=== PATIENT | female | born 1995 | race American Indian/Alaskan Native ===

== ENCOUNTER 2018-07-30 17:19 | Outpatient (CLI) | payer MEDICAID ==
[2018-07-30] MEDS ORDERED: LACTATED RINGERS 1,000 ML IV SCH (19:00)
[2018-07-30] MEDS ORDERED: LACTATED RINGERS 500 ML IV ONE (19:00)
[2018-07-30 19:13] LABS: Basophils % (Auto) 0.4 % (0.0-1.8); Eosinophils % (Auto) 0.4 % (0.0-4.3); Hematocrit 33.3 % (30.3-42.9); Hemoglobin 11.5 gm/dl (10.1-14.3); Lymphocytes % (Auto) 18.2 % (13.4-35.0); Mean Corpuscular HGB Conc 35 % (30-34); Mean Corpuscular Volume 89 fl (79-97); Monocytes # (Auto) 1.4 K/mm3 (0.0-0.8); Monocytes % (Auto) 12.7 % (0.0-7.3); Platelet Count 326 K/mm3 (140-440); Red Blood Count 3.74 M/mm3 (3.65-5.03); Red Cell Distribution Width 13.1 % (13.2-15.2)
[2018-07-30 19:17] LABS: Bacteria,Urine 2+ /HPF (Negative); Bilirubin,Urine NEG (Negative); Blood,Urine NEG (Negative); Color,Urine Yellow (Yellow); Mucus,Urine FEW /HPF; Protein,Urine <15 mg/dL mg/dL (Negative)
--- NOTE | 2018-07-31 04:18 | Ultrasound Report ---
PROCEDURE: US OB BPP WO NON-STRESS TECHNIQUE: A biophysical profile was performed. HISTORY: labor COMPARISONS: None FINDINGS: For breathing movements, a score of 2 out of 2 was obtained. For movements, a score of 2 out of 2 was obtained. For posture and tone, a score of 2 out of 2 was obtained. Qualitative amniotic fluid volume, a score of 2 out of 2 was obtained. The heart rate is 157 BPM. IMPRESSION: Biophysical profile score of 8 out of 8.. This document is electronically signed by Erik Saxena MD., July 31 2018 04:16:11 AM ET
--- NOTE | 2018-07-31 04:19 | Ultrasound Report ---
PROCEDURE: US OB LIMITED TECHNIQUE: A limited OB sonogram was obtained for evaluation of the JAGDEEP. HISTORY: labor JAGDEEP COMPARISONS: None FINDINGS: The JAGDEEP is 15.7 cm which is normal. The heart rate is 157 BPM. The fetus is in cephalic present ation. IMPRESSION: Normal JAGDEEP of 15.7 cm.. This document is electronically signed by Erik Saxena MD., July 31 2018 04:17:07 AM ET
[2018-07-31 19:27] VITALS: BP 127/62
== END 2018-07-30 19:43 | disposition home or self-care (01) ==
LOC: TRG 17:19
PROVIDERS: ATTEND Obstetrics & Gynecology
DX: O76 Abnormality in fetal heart rate and rhythm complicating labor and delivery (principal); Z3A.32 32 weeks gestation of pregnancy
CPT/HCPCS: 36415; 59025; 76815; 76819; 81001; 85025; 96360

== ENCOUNTER 2018-08-17 15:16 | Outpatient (CLI) | payer MEDICAID ==
[2018-08-17] MEDS ORDERED: LACTATED RINGERS 500 ML IV ONE (15:46)
[2018-08-17 16:32] VITALS: BP 120/58
--- NOTE | 2018-08-17 16:40 | Ultrasound Report ---
EXAM: US OB BPP WO NON-STRESS HISTORY: movement TECHNIQUE: June scale imaging, duplex Doppler and color flow Doppler imaging are performed with a cur vilinear transducer. COMPARISON: None available. FINDINGS: breathing movements, 2. body movements, 2. tone, 2. Qualitative amniotic fluid volume, 2. There is a single IUP in cephalic presentation. The estimated heart rate is 178 beats per minut e. No gross anomaly is seen at this time (very Limited views of the anatomy). There is no evidence for cervical incompetence. The amniotic fluid index measures 13.6 cm, (left uppe r quadrant 2.8 cm; right upper quadrant 4.1 cm; right lower quadrant 2 cm; left lower quadrant 4.7 cm ) which is within normal limits. The ovaries are not visualized. No free fluid is seen in the pelvis. IMPRESSION: 1. Single live IUP in cephalic presentation. 2. The biophysical profile is 8/8. 3. The estimated heart rate is 178 beats per minute. 4. The amniotic fluid volume is within normal limits (13.6 cm). This document is electronically signed by Gregorio Fairbanks MD., Aug 17 2018 04:37:48 PM ET
--- NOTE | 2018-08-17 16:48 | Ultrasound Report ---
PROCEDURE: Limited obstetrical ultrasound. TECHNIQUE: Real-time limited sonographic examination was performed for evaluation of each fetus with image documentation (1 or more fetuses). HISTORY: , evaluate well being. COMPARISONS: Limited obstetrical ultrasound 07/30/2018. FINDINGS: There is a single viable fetus in cephalic presentation. Cardiac activity is documented at 178 bpm. T he amniotic fluid volume appears normal. The amniotic fluid index measures 13.6 cm. IMPRESSION: Normal amniotic fluid index of 13.6 cm. This document is electronically signed by Artemio Troncoso MD., Aug 17 2018 04:46:04 PM ET
== END 2018-08-17 15:30 | disposition home or self-care (01) ==
LOC: TRG 15:16
PROVIDERS: ATTEND Obstetrics & Gynecology
DX: O47.03 False labor before 37 completed weeks of gestation, third trimester (principal); Z3A.35 35 weeks gestation of pregnancy
CPT/HCPCS: 59025; 76815; 76819

== ENCOUNTER 2018-09-12 05:17 | Inpatient (IN) | payer MEDICAID ==
[2018-09-12] MEDS ORDERED: LACTATED RINGERS 1,000 ML IV ONE (06:16)
[2018-09-12] MEDS ORDERED: MINERAL OIL PO PRN (08:37)
[2018-09-12] MEDS ORDERED: BRETHINE SUB-Q PRN (08:37)
[2018-09-12] MEDS ORDERED: BRETHINE IVP PRN (08:37)
[2018-09-12] MEDS ORDERED: ZOFRAN IV PRN ×2 (08:37→22:31)
[2018-09-12] MEDS ORDERED: STADOL IV PRN (08:37)
[2018-09-12] MEDS ORDERED: XYLOCAINE 2% INFILTRATI ONE (08:37)
[2018-09-12] MEDS ORDERED: AMPICILLIN/NS 2 GM/100 ML 2 GM/100 ML BAG IV ONE (08:37)
[2018-09-12 08:59] LABS: Hematocrit 33.8 % (30.3-42.9); Hemoglobin 11.6 gm/dl (10.1-14.3); Mean Corpuscular HGB Conc 34 % (30-34); Mean Corpuscular Volume 87 fl (79-97); Platelet Count 284 K/mm3 (140-440); Red Blood Count 3.87 M/mm3 (3.65-5.03); Red Cell Distribution Width 14.1 % (13.2-15.2)
[2018-09-12] MEDS ORDERED: PITOCin/NS 20 UNIT/1000ML DRIP 20 UNITS/1,000 ML BAG IV SCH (09:00)
[2018-09-12] MEDS ORDERED: LACTATED RINGERS 1,000 ML IV SCH ×2 (09:00→11:00)
[2018-09-12] MEDS ORDERED: SUBLIMAZE ONE (10:44)
[2018-09-12] MEDS ORDERED: MARCAINE 0.25% INFILTRATI ONE ×2 (10:44→18:58)
--- NOTE | 2018-09-12 10:51 | History and Physical Report ---
History of Present Illness Date of examination: 09/12/18 Date of admission: 09/12/18 10:02 Chief complaint: Intense Labor Pains History of present illness: Care at [facility]. States her course was uncomplicated. No records available and can not get in contact with office by telephone. Past History Past Medical History: no pertinent history Past Surgical History: no surgical history Family/Genetic History: none Social history: no significant social history, single - Obstetrical History Expected Date of Delivery: 09/19/18 Actual Gestation: 39 Week(s) 0 Day(s) : 2 Induced : 1 Medications and Allergies Allergies Allergy/AdvReac Type Severity Reaction Status Date / Time No Known Allergies Allergy Verified 09/12/18 06:10 Home Medications Medication Instructions Recorded Confirmed Last Taken Type No Known Home Medications [No 09/12/18 09/12/18 Unknown History Reported Home Medications] Active Meds: Active Medications Butorphanol Tartrate (Stadol) 2 mg IV Q2H PRN PRN Reason: Pain , Severe (7-10) Ephedrine Sulfate (Ephedrine Sulfate) 10 mg IV Q2M PRN PRN Reason: Hypotension Oxytocin/Sodium Chloride (Pitocin/Ns 20 Unit/1000ml Drip) 20 units in 1,000 mls @ 125 mls/hr IV DIRECT SHAVONNE Lactated Ringer's (Lactated Ringers) 1,000 mls @ 125 mls/hr IV DIRECT SHAVONNE Ampicillin Sodium (Polycillin/Ns 2 Gm/100 Ml) 2 gm in 100 mls @ 100 mls/hr IV ONCE ONE; Protocol Stop: 09/12/18 09:36 Ampicillin Sodium (Ampicillin/Ns 1 Gm/50 Ml) 1 gm in 50 mls @ 100 mls/hr IV Q4HR SHAVONNE; Protocol Lidocaine (Xylocaine 2%) 20 ml INFILTRATI ONCE ONE Stop: 09/12/18 08:38 Mineral Oil (Mineral Oil) 30 ml PO QHS PRN PRN Reason: Constipation Ondansetron HCl (Zofran) 4 mg IV Q8H PRN PRN Reason: Nausea And Vomiting Terbutaline Sulfate (Brethine) 0.25 mg SUB-Q ONCE PRN PRN Reason: Hyperstimulation/Hypertonicity Terbutaline Sulfate (Brethine) 0.25 mg IVP ONCE PRN PRN Reason: Hyperstimulation/Hypertonicity Review of Systems All systems: negative - Vital Signs Vital signs: Vital Signs Pulse BP 106 H 132/77 09/12/18 05:40 09/12/18 05:40 Temp Pulse Resp BP Pulse Ox 98.8 F 126 H 20 132/76 94 09/12/18 06:06 09/12/18 10:16 09/12/18 06:06 09/12/18 10:16 09/12/18 09:56 - Physical Exam Breasts: Positive: normal Cardiovascular: Regular rate Lungs: Positive: Clear to auscultation, Normal air movement Abdomen: Positive: normal appearance, soft Genitourinary (Female): Positive: normal external genitalia, normal perenium Vagina: Positive: normal moisture Uterus: Positive: normal size, normal contour - Obstetrical FHR: category 1 Uterine Contraction Monitor Mode: External Cervical Dilatation: 5 (per RN exam) Uterine Contraction Pattern: Irregular Uterine Tone Measurement Phase: Resting Uterine Contraction Intensity: Moderate Results Result Diagrams: 09/12/18 06:29 Abnormal lab results 09/12/18 Range/Units 06:29 WBC 13.7 H (4.5-11.0) K/mm3 All other labs normal. Assessment and Plan A: IUP @ 39 Weeks Category I Tracing Early Labor GBS Unknown P: Admit to L&D per Routine Orders GBS Prophylaxis Prepare for Epidural Anesthesia
[2018-09-12] MEDS ORDERED: PITOCin/NS 30 UNIT/500ML 30 UNITS/500 ML BAG IV SCH (11:00)
[2018-09-12] MEDS ORDERED: NARCAN 2 MG/2 ML IV PRN (11:13)
--- NOTE | 2018-09-12 11:13 | Anesthesia Consultation ---
Anesthesia Consult and Med Hx Date of service: 09/12/18 - Airway Anesthetic Teeth Evaluation: Good ROM Head & Neck: Adequate Mental/Hyoid Distance: Adequate Mallampati Class: Class II Intubation Access Assessment: Good - Pulmonary Exam CTA: Yes - Cardiac Exam Cardiac Exam: RRR - Pre-Operative Health Status ASA Pre-Surgery Classification: ASA2 Proposed Anesthetic Plan: Epidural - Pulmonary Hx Asthma: No - Cardiovascular System Hx Hypertension: No - Central Nervous System Hx Seizures: No Hx Psychiatric Problems: No - Endocrine Hx Renal Disease: No Hx Hypothyroidism: No Hx Hyperthyroidism: No - Hematic Hx Anemia: No Hx Sickle Cell Disease: No - Other Systems Hx Alcohol Use: No
--- NOTE | 2018-09-12 11:26 | Progress Note ---
Assessment and Plan A: IUP @ 39 Weeks Category I Tracing Early Labor GBS Unknown Meconium Stained fluids P: AROM Internals X 2 Start Pitocin Augmentation Continue GBS Prophylaxis Subjective - Subjective Date of service: 09/12/18 Interval history: Care at [facility]. States her course was uncomplicated. No records available and can not get in contact with office by telephone. Patient reports: other (Resting well under epidural anesthesia) Objective - Vital Signs Vital Signs: Vital Signs - 12hr 09/12/18 09/12/18 09/12/18 05:40 06:06 06:19 Temperature 98.8 F Pulse Rate 106 H 106 H 117 H Respiratory 20 Rate Blood Pressure 132/77 Blood Pressure 132/77 [Left] O2 Sat by Pulse 97 Oximetry 09/12/18 09/12/18 09/12/18 06:24 06:29 06:34 Temperature Pulse Rate 110 H 107 H 126 H Respiratory Rate Blood Pressure Blood Pressure [Left] O2 Sat by Pulse 96 98 97 Oximetry 09/12/18 09/12/18 09/12/18 06:39 06:44 06:49 Temperature Pulse Rate 107 H 110 H 110 H Respiratory Rate Blood Pressure Blood Pressure [Left] O2 Sat by Pulse 96 98 98 Oximetry 09/12/18 09/12/18 09/12/18 06:54 06:59 07:04 Temperature Pulse Rate 99 H 101 H 98 H Respiratory Rate Blood Pressure Blood Pressure [Left] O2 Sat by Pulse 97 97 96 Oximetry 09/12/18 09/12/18 09/12/18 07:09 07:14 07:19 Temperature Pulse Rate 102 H 103 H 103 H Respiratory Rate Blood Pressure Blood Pressure [Left] O2 Sat by Pulse 96 97 96 Oximetry 09/12/18 09/12/18 09/12/18 07:20 07:24 07:29 Temperature Pulse Rate 108 H 98 H 108 H Respiratory Rate Blood Pressure Blood Pressure [Left] O2 Sat by Pulse 92 98 97 Oximetry 09/12/18 09/12/18 09/12/18 07:34 07:39 07:44 Temperature Pulse Rate 116 H 129 H 111 H Respiratory Rate Blood Pressure Blood Pressure [Left] O2 Sat by Pulse 97 95 97 Oximetry 09/12/18 09/12/18 09/12/18 07:56 08:01 09:21 Temperature Pulse Rate 113 H 114 H 104 H Respiratory Rate Blood Pressure Blood Pressure [Left] O2 Sat by Pulse 97 98 98 Oximetry 09/12/18 09/12/18 09/12/18 09:23 09:35 09:38 Temperature Pulse Rate 101 H 99 H 91 H Respiratory Rate Blood Pressure Blood Pressure [Left] O2 Sat by Pulse 94 94 96 Oximetry 09/12/18 09/12/18 09/12/18 09:43 09:49 09:53 Temperature Pulse Rate 90 93 H 94 H Respiratory Rate Blood Pressure Blood Pressure [Left] O2 Sat by Pulse 94 94 95 Oximetry 09/12/18 09/12/18 09/12/18 09:56 10:16 10:48 Temperature Pulse Rate 93 H 126 H 128 H Respiratory Rate Blood Pressure 132/76 Blood Pressure [Left] O2 Sat by Pulse 94 100 Oximetry 09/12/18 09/12/18 09/12/18 10:53 10:55 10:57 Temperature Pulse Rate 117 H 109 H 109 H Respiratory Rate Blood Pressure 144/68 133/60 141/70 Blood Pressure [Left] O2 Sat by Pulse 98 Oximetry 09/12/18 09/12/18 09/12/18 10:58 10:59 11:01 Temperature Pulse Rate 115 H 106 H 120 H Respiratory Rate Blood Pressure 142/70 139/73 Blood Pressure [Left] O2 Sat by Pulse 97 Oximetry 09/12/18 09/12/18 09/12/18 11:03 11:06 11:07 Temperature Pulse Rate 120 H 109 H 114 H Respiratory Rate Blood Pressure 132/62 135/63 Blood Pressure [Left] O2 Sat by Pulse 97 Oximetry 09/12/18 09/12/18 09/12/18 11:08 11:09 11:11 Temperature Pulse Rate 125 H 118 H 115 H Respiratory Rate Blood Pressure 131/63 130/64 Blood Pressure [Left] O2 Sat by Pulse 99 Oximetry 09/12/18 09/12/18 11:13 11:18 Temperature Pulse Rate 119 H 109 H Respiratory Rate Blood Pressure 132/73 125/67 Blood Pressure [Left] O2 Sat by Pulse 99 98 Oximetry - Exam Breasts: normal Cardiovascular: Regular rate Lungs: Clear to auscultation, Normal air movement Abdomen: Present: normal appearance, soft Uterus: Present: normal, firm, fundal height above umbilicus FHR: category 1 Uterine Contraction Monitor Mode: Internal Cervical Dilatation: 7 (Copious amount of particulate, yellow meconium stained fluids upon AROM at 1120) Cervical Effacement Percentage: 70 station: -2 Uterine Contraction Pattern: Irregular Uterine Tone Measurement Phase: Resting Uterine Contraction Intensity: Moderate Extremities: normal - Labs Labs: Abnormal Labs 09/12/18 06:29 WBC 13.7 H Laboratory Results - last 24 hr 09/12/18 09/12/18 06:29 06:29 WBC 13.7 H RBC 3.87 Hgb 11.6 Hct 33.8 MCV 87 MCH 30 MCHC 34 RDW 14.1 Plt Count 284 Blood Type A NEGATIVE Antibody Screen TNR VIKAS Antibody Screen Negative
[2018-09-12] MEDS ORDERED: fentaNYL-BUPIV 2 MCG/ML-0.125% 200 MCG/100 ML BAG EPIDURAL SCH (12:00)
[2018-09-12] MEDS ORDERED: AMPICILLIN/NS 1 GM/50 ML 1 GM/50 ML BAG IV SCH (12:38)
[2018-09-12] MEDS ORDERED: NACL 0.9% 1000 ML 1,000 ML VG SCH (13:00)
--- NOTE | 2018-09-12 22:07 | Procedure Note ---
OB Delivery Note - Delivery Date of Delivery: 09/12/18 (2133) Surgeon: YOJANA RAY Estimated blood loss: 200cc - Vaginal Delivery presentation: vertex Delivery position: OA Intrapartum events: meconium, prolonged active phase, mult. late decelerations, mult.variable deceleratio Delivery induction: none Delivery augmentation: rupture of membranes, pitocin Delivery monitor: internal FHT, internal uterine Route of delivery: Delivery placenta: spontaneous Delivery cord: 3 umbilical vessels Episiotomy: none Delivery laceration: none Anesthesia: epidural Delivery comments: of a live 7'0 male over a intact perineum under epidural anesthesia with Apgars of 4 and 7 at 2133 on 09/12/2018. Cord double clamped and cut by BRET Rya, not stimulated and handed directly to awaiting NICU/RESP team due to particulate meconium stained fluids. Cord blood gasses (venous) collected x 1. Cord blood also collected. Spontaneous delivery of placenta complete and intact with Fernandez side presenting at 2142. Fundus is firm and midline located 4 below the U. Lochia is scant. Placenta to pathology. GBS prophylaxis x 2. - A at 1 minute: 4 at 5 minutes: 8 Gender: Male (7'0)
[2018-09-12] MEDS ORDERED: PHENERGAN PR PRN (22:31)
[2018-09-12] MEDS ORDERED: BENADRYL PO PRN (22:31)
[2018-09-12] MEDS ORDERED: PHENERGAN PO PRN (22:31)
[2018-09-12] MEDS ORDERED: SODIUM CHLORIDE FLUSH SYRINGE 10 ML IV PRN (23:00)
[2018-09-13] MEDS: IBUPROFEN PO SCH ×3 (01:13→23:34)
--- NOTE | 2018-09-13 10:37 | Progress Note ---
Assessment and Plan A: PPD#1 s/p Stable in NICU P: Routine PP care Anticipate discharge home in 24-48 hrs Subjective - Subjective Date of service: 09/13/18 Principal diagnosis: PPD#1 s/p 09/12/18 @21:34 Patient reports: appetite normal, voiding normally, pain well controlled, flatus, ambulating normally, no bowel movement [place]: in NICU, other (Pumping breasts with desire to breastfeed) Objective - Vital Signs Latest vital signs: Vital Signs Temp Pulse Resp BP BP Pulse Ox 09/13/18 07:31 98.3 F 102 H 20 137/69 99 09/13/18 01:14 99.4 F 114 H 18 120/69 120/69 97 09/12/18 21:44 129 H 120/67 09/12/18 19:55 112 H 127/86 09/12/18 19:24 112 H 123/86 09/12/18 19:04 91 H 100 09/12/18 19:01 90 122/65 09/12/18 18:59 103 H 99 09/12/18 18:54 89 107/59 99 09/12/18 18:49 114 H 99 09/12/18 18:44 127 H 97 09/12/18 18:40 110 H 91 09/12/18 18:39 107 H 99 09/12/18 18:34 108 H 99 09/12/18 18:29 102 H 99 09/12/18 18:24 99 H 141/67 100 09/12/18 18:19 98 H 98 09/12/18 18:14 105 H 99 09/12/18 18:09 114 H 144/65 100 09/12/18 18:04 88 100 09/12/18 17:59 103 H 100 09/12/18 17:54 98 H 146/74 100 09/12/18 17:49 104 H 98 09/12/18 17:44 103 H 100 09/12/18 17:39 106 H 146/63 100 09/12/18 17:34 103 H 99 09/12/18 17:29 99 H 100 09/12/18 17:25 109 H 135/71 09/12/18 17:24 102 H 99 09/12/18 17:19 109 H 99 09/12/18 17:14 107 H 100 09/12/18 17:10 111 H 122/58 90 09/12/18 17:09 101 H 96 09/12/18 17:04 98 H 96 09/12/18 16:59 95 H 96 09/12/18 16:54 93 H 137/72 99 09/12/18 16:49 102 H 97 09/12/18 16:44 96 H 97 09/12/18 16:40 104 H 123/76 09/12/18 16:39 90 97 09/12/18 16:34 98 H 97 09/12/18 16:29 95 H 96 09/12/18 16:24 101 H 132/73 97 09/12/18 16:19 88 98 09/12/18 16:14 100 H 98 09/12/18 16:10 100 H 133/83 09/12/18 16:09 94 H 99 09/12/18 16:04 108 H 99 09/12/18 15:59 98 H 99 09/12/18 15:54 99 H 100 09/12/18 15:49 109 H 98 09/12/18 15:44 96 H 124/60 100 09/12/18 15:39 92 H 100 09/12/18 15:34 93 H 99 09/12/18 15:29 91 H 99 09/12/18 15:24 107 H 100 09/12/18 15:19 87 99 09/12/18 15:14 85 99 09/12/18 15:09 91 H 100 09/12/18 15:04 103 H 99 09/12/18 14:59 96 H 99 09/12/18 14:54 105 H 99 09/12/18 14:49 95 H 98 09/12/18 14:44 101 H 97 09/12/18 14:39 88 104/58 98 09/12/18 14:34 99 H 96 09/12/18 14:29 93 H 96 09/12/18 14:24 90 102/56 96 09/12/18 14:19 92 H 97 09/12/18 14:14 94 H 97 09/12/18 14:09 101 H 103/57 97 09/12/18 14:04 97 H 98 09/12/18 13:59 95 H 98 09/12/18 13:55 99 H 124/64 09/12/18 13:54 100 H 100 09/12/18 13:49 107 H 100 09/12/18 13:44 103 H 97 09/12/18 13:39 98 H 104/58 99 09/12/18 13:34 94 H 99 09/12/18 13:29 91 H 99 09/12/18 13:24 111 H 140/87 98 09/12/18 13:19 94 H 99 09/12/18 13:14 96 H 99 09/12/18 13:08 91 H 100 09/12/18 13:03 106 H 99 09/12/18 12:58 102 H 99 09/12/18 12:53 116 H 99 09/12/18 12:48 94 H 99 09/12/18 12:43 97 H 100 09/12/18 12:39 98 H 114/64 09/12/18 12:38 95 H 100 09/12/18 12:33 105 H 100 09/12/18 12:28 112 H 100 09/12/18 12:24 93 H 121/67 09/12/18 12:23 105 H 99 09/12/18 12:18 97 H 99 09/12/18 12:13 104 H 97 09/12/18 12:09 93 H 119/69 09/12/18 12:08 95 H 99 09/12/18 12:03 99 H 100 09/12/18 11:58 113 H 100 09/12/18 11:55 96 H 110/60 09/12/18 11:53 101 H 100 09/12/18 11:48 100 H 100 09/12/18 11:43 112 H 99 09/12/18 11:38 104 H 99 09/12/18 11:33 107 H 99 09/12/18 11:28 113 H 98 09/12/18 11:23 101 H 131/62 97 09/12/18 11:18 109 H 125/67 98 09/12/18 11:13 119 H 132/73 99 09/12/18 11:11 115 H 130/64 09/12/18 11:09 118 H 131/63 09/12/18 11:08 125 H 99 09/12/18 11:07 114 H 135/63 09/12/18 11:06 109 H 132/62 09/12/18 11:03 120 H 97 09/12/18 11:01 120 H 139/73 09/12/18 10:59 106 H 142/70 09/12/18 10:58 115 H 97 09/12/18 10:57 109 H 141/70 09/12/18 10:55 109 H 133/60 09/12/18 10:53 117 H 144/68 98 09/12/18 10:48 128 H 100 Intake and Output 09/12/18 09/13/18 09/13/18 23:59 07:59 15:59 Intake Total 27.067 360 120 Output Total 900 Balance 27.067 -540 120 Intake: IV 27.067 PITOCin/NS 30 UNIT/500ML 27.067 30 units In 500 ml @ 4 mls/hr IV TITR SHAVONNE Rx#: [id number] Oral 120 Intake, Free Water 360 Output: Urine 900 Void 900 Other: Total, Intake Amount 120 Total, Output Amount 900 Estimated Blood Loss 200 - Exam Breasts: Present: normal, Cardiovascular: Present: Regular rate, Normal S1, Normal S2, No murmurs Lungs: Present: Clear to auscultation, Normal air movement Abdomen: Present: normal appearance, soft, normal bowel sounds. Absent: distention Vulva: both: normal Uterus: Present: firm, fundal height at umbilicus Extremities: Present: normal Deep Tendon Reflex Grade: Normal +2 - Labs Labs: Abnormal lab results 09/12/18 Range/Units 22:06 POC ABG pH 7.301 L (7.35-7.45)
[2018-09-13] MEDS: NORCO 5/325 PO PRN ×2 (12:15→21:43)
[2018-09-13 17:44] LABS: Hemoglobin 10.5 gm/dl (10.1-14.3)
[2018-09-13] MEDS ORDERED: ATIVAN ONE ×2 (18:49→18:50)
[2018-09-14] MEDS: NORCO 5/325 PO PRN ×2 (03:22→11:29)
[2018-09-14] MEDS: IBUPROFEN PO SCH ×4 (06:15→22:11)
--- NOTE | 2018-09-14 11:04 | Progress Note ---
Assessment and Plan A: PPD#2 s/p Stable P: Routine PP care Discharge home today pending Peds Subjective - Subjective Date of service: 09/14/18 Principal diagnosis: PPD#2 s/p 09/12/18 @21:34 Interval history: See H&P and delivery note Patient reports: appetite normal, voiding normally, pain well controlled, flatus, ambulating normally : doing well Objective - Vital Signs Latest vital signs: Vital Signs Temp Pulse Resp BP BP Pulse Ox 09/14/18 08:04 98.2 F 90 20 120/72 97 09/14/18 03:22 18 09/13/18 23:30 98.7 F 69 18 104/78 09/13/18 21:43 18 09/13/18 15:41 98.4 F 93 H 20 115/56 98 09/13/18 11:51 99.1 F 102 H 20 120/76 98 Intake and Output 09/13/18 09/14/18 09/14/18 23:59 07:59 15:59 Intake Total 120 300 Balance 120 300 Intake: Oral 120 Intake, Free Water 300 Other: Total, Intake Amount 120 - Exam Breasts: Present: normal Cardiovascular: Present: Regular rate, Normal S1, Normal S2, No murmurs Lungs: Present: Clear to auscultation, Normal air movement Abdomen: Present: normal appearance, soft, normal bowel sounds. Absent: distention Vulva: both: normal Uterus: Present: firm, fundal height below umbilicus (-1) Extremities: Present: normal - Labs Labs: Abnormal lab results 09/13/18 Range/Units 17:10 Hct 30.0 L (30.3-42.9) %
--- NOTE | 2018-09-14 11:06 | Discharge Summary ---
Providers - Providers Date of Admission: 09/12/18 10:02 Date of discharge: 09/14/18 Attending physician: KALPANA LEE Primary care physician: KALPANA LEE Hospitalization Reason for admission: IUP at term Delivery: Procedure details: See delivery note Episiotomy: none Laceration: none Other procedures: none complications: none Discharge diagnosis: IUP at term delivered baby: male Condition at discharge: Good Disposition: DC-01 TO HOME OR SELFCARE Plan - Provider Discharge Summary Activity: routine, no sex for 6 weeks, no heavy lifting 4 weeks, no strenuous exercise Diet: routine Instructions: routine Additional instructions: [] Smoking cessation referral if applicable(refer to patient education folder for contact #) [] Refer to [facility]'s [facility] Booklet Call your doctor immediately for: * Fever > 100.5 * Heavy vaginal bleeding ( >1 pad per hour) * Severe persistent headache * Shortness of breath * Reddened, hot, painful area to leg or breast * Drainage or odor from incision. * Keep incision clean and dry at all times and follow doctor's instructions regarding bathing/showering - Follow up plan Follow up: KALPANA LEE MD [Primary Care Provider] - 6 Weeks
[2018-09-14 22:00] VITALS: BP 101/79
[2018-09-18 17:17] LABS: HIV-1 RNA QN PCR <1.30 Log cps/mL; HIV-1 RNA QN PCR <20 Copies/mL
== END 2018-09-14 22:30 | disposition home or self-care (01) | DRG 775 ==
LOC: TRG 05:17 → LD 10:02 → OB 09-13 00:59
PROVIDERS: ADMIT Obstetrics & Gynecology; ATTEND Obstetrics & Gynecology
PROC: 10E0XZZ Delivery of Products of Conception, External Approach (ICD-10-PCS; principal; 2018-09-12)
PROC: 3E0R3BZ Introduction of Anesthetic Agent into Spinal Canal, Percutaneous Approach (ICD-10-PCS; 2018-09-12)
PROC: 00HU33Z Insertion of Infusion Device into Spinal Canal, Percutaneous Approach (ICD-10-PCS; 2018-09-12)
PROC: 10907ZC Drainage of Amniotic Fluid, Therapeutic from Products of Conception, Via Natural or Artificial Opening (ICD-10-PCS; 2018-09-12)
PROC: 3E0334Z Introduction of Serum, Toxoid and Vaccine into Peripheral Vein, Percutaneous Approach (ICD-10-PCS; 2018-09-14)
DX: O76 Abnormality in fetal heart rate and rhythm complicating labor and delivery (principal); O77.0 Labor and delivery complicated by meconium in amniotic fluid; Z3A.39 39 weeks gestation of pregnancy; Z37.0 Single live birth
CPT/HCPCS: 36415; 82803; 85014; 85018; 85027; 85461; 86592; 86706; 86762; 86850; 86900; 86901; 87536; 87806; 88307; G0378; J0290; J0595; J2060; J2590; J2790; J3010; J7030; J7120